=== PATIENT | female | born 2000 | race Caucasian/White ===

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

== ENCOUNTER 2023-04-16 07:33 | Observation (INO) | payer OTHER ==
[~2023-04-16] VITALS: Ht 160 cm; Wt 99.8 kg
[~2023-04-16 07:33] MED LIST: FAMO-90 PO; IBUP-2213 PO
[2023-04-16] MEDS ORDERED: PNV91TAB8 PO (08:06)
== END 2023-04-16 12:10 | disposition home or self-care (01) ==
LOC: MLD 07:33
PROVIDERS: ADMIT Obstetrics & Gynecology; ATTEND Obstetrics & Gynecology
DX: O26.893 Other specified pregnancy related conditions, third trimester (principal); R10.30 Lower abdominal pain, unspecified; Z3A.28 28 weeks gestation of pregnancy
CPT/HCPCS: 36415; 86850; 86886; 86900; 86901; G0378; J2790; 81000

== ENCOUNTER 2023-05-31 | Observation (INO) | payer OTHER ==
[~2023-05-31] VITALS: Ht 160 cm; Wt 95.3 kg
[~2023-05-31] MED LIST changes: -FAMO-90 PO; -IBUP-2213 PO; +PNV91TAB8 PO
[2023-05-31 00:44] VITALS: BP 127/78; PULSE 81; RESP 18; TEMP 98.2
[2023-05-31] MEDS ORDERED: LACTATED RINGERS 1,000 ML IV SCH (01:10)
[2023-05-31 01:32] LABS: BASOPHILS % (AUTO) 0.3 % (0.0-2.0); EOSINOPHILS # (AUTO) 0.1 K/uL (0-0.4); EOSINOPHILS % (AUTO) 1.1 % (0.0-4.0); HEMATOCRIT 31.7 % (36-48); HEMOGLOBIN 10.5 g/dL (12.0-16.0); LYMPHOCYTES # (AUTO) 3.1 K/uL (2.5-16.5); MEAN CORPUSCULAR HEMOGLOBIN 26 pg (27-31); MEAN CORPUSCULAR HGB CONC 33 g/dL (33-37); MEAN CORPUSCULAR VOLUME 78.2 fL (80-94); MONOCYTES # (AUTO) 0.8 K/uL (0.8-1.0); MONOCYTES % (AUTO) 6.4 % (1.7-9.3); NEUTROPHILS # (AUTO) 8.3 K/uL (1.8-7.7); NEUTROPHILS % (AUTO) 67.2 % (42.2-75.2); PLATELET COUNT (AUTO) 331 K/uL (140-450); RED BLOOD CELL COUNT(AUTO) 4.06 MIL/uL (4.20-5.40); RED CELL DISTRIBUTION WIDTH 14.1 % (11.6-13.7); WHITE BLOOD COUNT (AUTO) 12.3 K/uL (4.5-11.0)
[2023-05-31 01:40] LABS: APPEARANCE,URINE CLEAR (CLEAR); BILIRUBIN,URINE NEGATIVE (NEGATIVE); BLOOD, URINE NEGATIVE (NEGATIVE); COLOR,URINE YELLOW (YELLOW); LEUKOCYTE ESTERASE ,URINE 2+ (NEGATIVE); NITRITE, URINE NEGATIVE (NEGATIVE); PH,URINE 6.5 (5.0-9.0); PROTEIN,URINE TRACE (NEGATIVE); UGLUCOSE NEGATIVE (NEGATIVE); UROBILINOGEN,URINE 0.2 EU/dL (0.2 - 1)
[2023-05-31 01:53] LABS: INR 0.95 (0.8-1.2); PARTIAL THROMBOPLASTIN TIME 28.5 secs (22-35.6)
[2023-05-31 01:56] LABS: ALBUMIN 2.1 g/dL (3.4-5.0); ANION GAP 11.2 (8-16); CALCIUM 8.6 mg/dL (8.5-10.1); CARBON DIOXIDE 25.8 mmol/L (21-32); CREATININE 0.6 mg/dL (0.6-1.3); TOTAL BILIRUBIN 0.1 mg/dL (0.0-1.0); TOTAL PROTEIN, SERUM 7.3 g/dL (6.4-8.2); URIC ACID 4.8 mg/dL (2.6-7.2)
[2023-05-31 02:05] LABS: URINE TOTAL PROTEIN 31.2 mg/dL (0-12)
[2023-05-31 02:07] LABS: URINE TPRO CREAT RATIO 0.3 (0-0.20)
[2023-05-31 02:11] LABS: BACTERIA,URINE 10-30 (MOD) /HPF (None Seen); RBC,URINE 11-20 (MOD) /HPF (0-5)
[2023-05-31 02:12] LABS: SQUAMOUS EPITHELIAL CELL,UR 4-10 (MOD) /LPF (0-3 (FEW))
[2023-05-31] MEDS ORDERED: NACL 0.9% 1,000 ML IV SCH (10:15)
[2023-05-31] MEDS ORDERED: cefTRIAXone 1,000 MG VIAL ONE (10:18)
== END 2023-05-31 11:25 | disposition home or self-care (01) ==
LOC: MLD
PROVIDERS: ADMIT Obstetrics & Gynecology; ATTEND Obstetrics & Gynecology
DX: O26.893 Other specified pregnancy related conditions, third trimester (principal); R10.9 Unspecified abdominal pain; Z20.822 Contact with and (suspected) exposure to COVID-19; Z3A.35 35 weeks gestation of pregnancy
CPT/HCPCS: 36415; 76805; 80053; 81001; 82570; 84550; 85025; 85384; 85610; 85730; 86886; 86900; 86901; 87086; 87426; 96361; 96365; G0378; J0696; J7060; Q0092; J7030; J7120

== ENCOUNTER 2023-06-14 05:05 | Inpatient (IN) | payer OTHER ==
[~2023-06-14] VITALS: Ht 160 cm; Wt 97.5 kg
[2023-06-14] MEDS ORDERED: CARBOPROST 250 MCG/ML AMP IM PRN (05:20)
[2023-06-14] MEDS ORDERED: LACTATED RINGERS 1,000 ML IV SCH (05:20)
[2023-06-14] MEDS ORDERED: METHYLERGONOVINE 0.2 MG/ML AMP IM PRN ×2 (05:20→10:20)
[2023-06-14] MEDS ORDERED: CITRIC ACID/SODIUM CITRATE 30 ML UDC PO SCH (05:20)
[2023-06-14 05:39] LABS: BASOPHILS % (AUTO) 0.2 % (0.0-2.0); EOSINOPHILS # (AUTO) 0.1 K/uL (0-0.4); EOSINOPHILS % (AUTO) 0.7 % (0.0-4.0); HEMOGLOBIN 10.2 g/dL (12.0-16.0); LYMPHOCYTES # (AUTO) 3.1 K/uL (2.5-16.5); LYMPHOCYTES % (AUTO) 25.4 % (20.5-51.1); MEAN CORPUSCULAR HEMOGLOBIN 25 pg (27-31); MEAN CORPUSCULAR HGB CONC 33 g/dL (33-37); MEAN CORPUSCULAR VOLUME 77.1 fL (80-94); MONOCYTES # (AUTO) 0.8 K/uL (0.8-1.0); MONOCYTES % (AUTO) 6.8 % (1.7-9.3); NEUTROPHILS # (AUTO) 8.3 K/uL (1.8-7.7); NEUTROPHILS % (AUTO) 66.9 % (42.2-75.2); PLATELET COUNT (AUTO) 311 K/uL (140-450); RED BLOOD CELL COUNT(AUTO) 4.02 MIL/uL (4.20-5.40); RED CELL DISTRIBUTION WIDTH 14.6 % (11.6-13.7); WHITE BLOOD COUNT (AUTO) 12.4 K/uL (4.5-11.0)
[2023-06-14 05:48] LABS: APPEARANCE,URINE CLEAR (CLEAR); BILIRUBIN,URINE NEGATIVE (NEGATIVE); BLOOD, URINE NEGATIVE (NEGATIVE); COLOR,URINE YELLOW (YELLOW); LEUKOCYTE ESTERASE ,URINE 2+ (NEGATIVE); NITRITE, URINE NEGATIVE (NEGATIVE); PROTEIN,URINE NEGATIVE (NEGATIVE); UGLUCOSE NEGATIVE (NEGATIVE); UROBILINOGEN,URINE 0.2 EU/dL (0.2 - 1)
[2023-06-14 05:58] LABS: BACTERIA,URINE 10-30 (MOD) /HPF (None Seen); MUCUS,URINE 1+ /LPF (None Seen); RBC,URINE 0-5 /HPF (0-5); SQUAMOUS EPITHELIAL CELL,UR 0-3 (FEW) /LPF (0-3 (FEW))
[2023-06-14 05:58] LABS: INR 0.98 (0.8-1.2); PARTIAL THROMBOPLASTIN TIME 25.5 secs (22-35.6); PROTHROMBIN TIME 10.3 secs (10.8-13.4)
[2023-06-14 06:26] LABS: ALBUMIN 2.2 g/dL (3.4-5.0); ANION GAP 12.6 (8-16); CALCIUM 8.6 mg/dL (8.5-10.1); CARBON DIOXIDE 24.2 mmol/L (21-32); CREATININE 0.6 mg/dL (0.6-1.3); POTASSIUM 3.8 mmol/L (3.5-5.1); TOTAL BILIRUBIN 0.2 mg/dL (0.0-1.0); TOTAL PROTEIN, SERUM 7.3 g/dL (6.4-8.2)
[2023-06-14 06:59] VITALS: BP 145/91; PULSE 74; RESP 18; TEMP 97.8
[2023-06-14] MEDS ORDERED: NALOXONE 0.4 MG/ML VIAL IVP PRN ×3 (07:05)
[2023-06-14] MEDS ORDERED: ONDANSETRON 4 MG/2 ML VIAL IVP PRN ×2 (07:05→07:10)
[2023-06-14] MEDS ORDERED: HYDROmorphone 1 MG/ML AMP IVP PRN (07:05)
[2023-06-14] MEDS ORDERED: NALBUPHINE 10 MG/ML AMP IVP PRN (07:05)
[2023-06-14] MEDS ORDERED: ceFAZolin 2,000 MG VIAL ONE (07:08)
[2023-06-14] MEDS ORDERED: SODIUM 10 ML ONE ×3 (07:10→07:14)
[2023-06-14] MEDS ORDERED: PHENYLEPHRINE 10 MG/ML VIAL ONE (07:10)
[2023-06-14] MEDS ORDERED: OXYTOCIN 10 UNITS/ML VIAL ONE ×4 (07:10)
[2023-06-14] MEDS ORDERED: ACETAMINOPHEN 100 ML IV SCH (07:10)
[2023-06-14] MEDS ORDERED: MEPERIDINE 25 MG/ML SYR IVP PRN (07:10)
[2023-06-14] MEDS ORDERED: OXYTOCIN 20 UNITS in LACTATED RINGERS 1,000 ML IV SCH (07:10)
[2023-06-14] MEDS ORDERED: diphenhydrAMINE 50 MG/ML VIAL IVP PRN (07:10)
[2023-06-14] MEDS ORDERED: ePHEDrine 50 MG/ML VIAL ONE (07:10)
[2023-06-14] MEDS ORDERED: KETAMINE 500 MG/5 ML VIAL ONE (07:26)
[2023-06-14] MEDS ORDERED: MIDAZOLAM 2 MG/2 ML VIAL ONE (07:26)
[2023-06-14] MEDS ORDERED: MORPHINE PRES FREE 10 MG/10 ML AMP IV ONE (07:27)
[2023-06-14] MEDS: OXYTOCIN 20 UNITS/LR PREMIX 1,000 ML IV ONE (09:34)
[2023-06-14] MEDS ORDERED: TEMAZEPAM 15 MG CAP PO PRN (10:20)
[2023-06-14] MEDS ORDERED: SIMETHICONE 80 MG TAB.CHEW PO PRN (10:20)
[2023-06-14] MEDS ORDERED: MEASLES, MUMPS, AND RUBELLA 1 VIAL SQVAC PRN ×2 (10:20→10:35)
[2023-06-14] MEDS ORDERED: oxyCODONE/APAP 5/325 MG 1 TAB TAB PO PRN (10:20)
[2023-06-14] MEDS: KETOROLAC 30 MG/ML VIAL IVP SCH (11:47)
[2023-06-14] MEDS ORDERED: ACETAMINOPHEN 325 MG TAB PO SCH (12:00)
[2023-06-14] MEDS: bisacodyL 5 MG TABEC PO SCH (21:00)
[2023-06-14] MEDS: DOCUSATE SOD/SENNA 50/8.6 MG 1 TAB PO SCH (21:00)
[2023-06-14] MEDS ORDERED: OXYTOCIN 20 UNITS/LR PREMIX 1,000 ML IV ONE (21:20)
[2023-06-14] MEDS: OXYTOCIN 20 UNITS in LACTATED RINGERS 1,000 ML IV SCH (21:38)
[2023-06-15] MEDS ORDERED: OXYTOCIN 20 UNITS/LR PREMIX 1,000 ML IV ONE (04:58)
[2023-06-15 05:30] LABS: BASOPHILS % (AUTO) 0.2 % (0.0-2.0); EOSINOPHILS # (AUTO) 0.1 K/uL (0-0.4); EOSINOPHILS % (AUTO) 0.4 % (0.0-4.0); HEMATOCRIT 27.9 % (36-48); HEMOGLOBIN 9.4 g/dL (12.0-16.0); LYMPHOCYTES # (AUTO) 2.2 K/uL (2.5-16.5); LYMPHOCYTES % (AUTO) 17.5 % (20.5-51.1); MEAN CORPUSCULAR HEMOGLOBIN 26 pg (27-31); MEAN CORPUSCULAR HGB CONC 34 g/dL (33-37); MEAN CORPUSCULAR VOLUME 77.2 fL (80-94); MONOCYTES # (AUTO) 0.6 K/uL (0.8-1.0); MONOCYTES % (AUTO) 4.8 % (1.7-9.3); NEUTROPHILS # (AUTO) 9.7 K/uL (1.8-7.7); NEUTROPHILS % (AUTO) 77.1 % (42.2-75.2); PLATELET COUNT (AUTO) 268 K/uL (140-450); RED BLOOD CELL COUNT(AUTO) 3.62 MIL/uL (4.20-5.40); RED CELL DISTRIBUTION WIDTH 14.5 % (11.6-13.7); WHITE BLOOD COUNT (AUTO) 12.6 K/uL (4.5-11.0)
[2023-06-15] MEDS: oxyCODONE/APAP 5/325 MG 1 TAB TAB PO PRN (10:31)
[2023-06-15] MEDS ORDERED: AMMONIA AROMATIC 1 INHL INH ONE (10:35)
[2023-06-15] MEDS ORDERED: CAMERA MC ONE (20:23)
[2023-06-16] MEDS: SODIUM PHOSPHATE 118 ML ENEM RC SCH (09:00)
== END 2023-06-16 14:00 | disposition home or self-care (01) | DRG 540 ==
LOC: MLD 05:05 → MFCC 10:00
PROVIDERS: ADMIT Obstetrics & Gynecology; ATTEND Obstetrics & Gynecology
PROC: 10D00Z1 Extraction of Products of Conception, Low, Open Approach (ICD-10-PCS; principal; 2023-06-14 07:30)
DX: O14.94 Unspecified pre-eclampsia, complicating childbirth (principal); O34.211 Maternal care for low transverse scar from previous cesarean delivery; Z37.0 Single live birth; Z3A.37 37 weeks gestation of pregnancy
CPT/HCPCS: 36415; 51702; 80053; 81001; 85025; 85610; 85730; 86592; 86850; 86886; 86900; 86901; 87086; J1885; J2250; J2270; J2370; J2590; J2790; J7120